=== PATIENT | female | born 1955 | race Caucasian/White ===

== ENCOUNTER 2016-11-24 20:11 | Inpatient (IN) | payer OTHER ==
[~2016-11-24] VITALS: Ht 170.2 cm; Wt 87.5 kg
[~2016-11-24 20:11] MED LIST: AMLO5TAB4 PO; CAPT25TA3 PO; CARI350T PO; DOCU-150 PO; FURO-151 PO; GABA600T PO; OMEP20TA80 PO; OXYC-23 PO; SERT100T PO; SIMV40TA2 PO
[2016-11-24] MEDS ORDERED: KETOROLAC 30MG/ML VIAL IV STA (20:29)
[2016-11-24] MEDS ORDERED: SODIUM CHLORIDE 0.9% 1,000 ML IV ONE (20:29)
[2016-11-24] MEDS ORDERED: PANTOPRAZOLE SODIUM 40 MG/VIAL IV STA (20:29)
[2016-11-24] MEDS ORDERED: ASPIRIN 325MG TABLET PO ONE (20:45)
[2016-11-24 20:51] LABS: EOSINOPHILS % 2.5 % (0.0-5.0); HEMATOCRIT. 36.2 % (36.0-48.0); HEMOGLOBIN. 12.1 g/dL (12.0-16.0); LYMPHOCYTES % 39.1 % (20.0-50.0); MEAN CORPUSCULAR HEMOGLOBIN 28.2 pg (28.0-32.0); MEAN CORPUSCULAR HGB CONC 33.4 g/dL (31.0-37.0); MEAN CORPUSCULAR VOLUME 84.4 fL (81.0-99.0); MEAN PLATELET VOLUME 10.5 fl (7.4-10.4); MONOCYTES % 6.4 % (2.0-8.0); PLATELET 243 x1000/uL (130-400); RED BLOOD CELL COUNT 4.29 mill/uL (4.2-5.4); RED CELL DISTRIBUTION WIDTH 15.4 % (11.6-14.6); WHITE BLOOD COUNT 9.9 x1000/uL (4.5-11.0)
[2016-11-24 20:54] LABS: CHLORIDE 102 mEq/L (98-107)
[2016-11-24 20:56] LABS: PROTHROMBIN TIME 10.6 sec
[2016-11-24 21:02] LABS: ALANINE AMINOTRANSFERASE 34 IU/L (13-61); ALBUMIN 3.5 g/dL (3.4-5.0); ANION GAP 13; CALCIUM 8.6 mg/dL (8.5-10.1); CARBON DIOXIDE 28 mEq/L (21-32); ETHANOL BLOOD < 10 mg/dL; INDEX HEMOLYSI 1 (1-3); INDEX ICTERIC 1 (1-4); INDEX LIPEMIC 1 (1-3); LIPASE 111 IU/L (73-393); UREA NITROGEN BLOOD 10 mg/dL (7-21); eGFR > 60 mL/min (>60)
[2016-11-24 21:05] LABS: NT PRO B-TYPE NATRIURETIC PEP 285 pg/mL (5-125); TROPONIN I < 0.02 ng/mL (0.00-0.04)
[2016-11-24 21:40] LABS: CLARITY URINE CLEAR (CLEAR); COLOR URINE YELLOW (YELLOW); GLUCOSE URINE 3+ (NEGATIVE); KETONES URINE NEGATIVE (NEGATIVE); LEUKOCYTE ESTERASE URINE NEGATIVE (NEGATIVE); NITRITE URINE NEGATIVE (NEGATIVE); OCCULT BLOOD URINE NEGATIVE (NEGATIVE); PH URINE 7.5 (4.5-8.0); PROTEIN URINE NEGATIVE (NEGATIVE); SPECIFIC GRAVITY URINE 1.012 (1.005-1.030); UROBILINOGEN URINE 0.2 E.U./dL (0.2-1.0)
[2016-11-24 21:50] LABS: *AMPHETAMINES SCREEN URINE NEGATIVE (NEGATIVE); *BARBITURATES SCREEN URINE NEGATIVE (NEGATIVE); *BENZODIAZEPINES SCREEN URINE NEGATIVE (NEGATIVE); *COCAINE SCREEN URINE NEGATIVE (NEGATIVE); CANNABINOID URINE SCREEN PRESUMTIVE POSITIVE (NEGATIVE); ECSTASY MDMA SCREEN URINE NEGATIVE (NEGATIVE); METHADONE URINE SCREEN NEGATIVE (NEGATIVE); OPIATES URINE SCREEN PRESUMTIVE POSITIVE (NEGATIVE); PHENCYCLIDINE URINE SCREEN NEGATIVE (NEGATIVE)
[2016-11-24 22:33] LABS: RBC URINE 0-2 /hpf (0-2); WBC URINE 0-2 /hpf (0-2)
[2016-11-24 22:36] LABS: BACTERIA URINE TRACE; SQUAMOUS EPITHELIAL CELL URINE FEW /lpf (RARE/1+)
[2016-11-24] MEDS ORDERED: NITROGLYCERIN OINT 1GM/INCH UDPKT TD NR (23:15)
[2016-11-24] MEDS ORDERED: IBUPROFEN 400MG TABLET PO NR (23:15)
[2016-11-24] MEDS ORDERED: ASPIRIN 81MG TABLET PO NR (23:15)
[2016-11-24] MEDS ORDERED: HYDRALAZINE 20MG/ML VIAL IV NR (23:15)
[2016-11-24] MEDS ORDERED: POTASSIUM BICARB/CIT ACID 25 MEQ TABLET.EFF PO NR (23:15)
[2016-11-25] MEDS ORDERED: MAGNESIUM/ALUMINUM HYDROXIDE/SIMETHICONE 30ML UDC PO PRN (00:30)
[2016-11-25] MEDS ORDERED: DIPHENHYDRAMINE 50MG/ML VIAL IV PRN (00:30)
[2016-11-25] MEDS ORDERED: GUAIFENESIN 200MG/10ML SUGAR FREE UDC PO PRN (00:30)
[2016-11-25] MEDS ORDERED: IPRATROPIUM/ALBUTEROL 0.5-3(2.5)MG/3ML NEB INH PRN (00:30)
[2016-11-25] MEDS ORDERED: CLONIDINE 0.1MG TABLET PO PRN (00:30)
[2016-11-25] MEDS: OXYCODONE HCL/ACETAMINOPHEN 5/325MG TABLET PO PRN ×3 (00:46→20:18)
[2016-11-25] MEDS: CARISOPRODOL 350 MG TABLET PO PRN ×4 (01:40→22:40)
[2016-11-25 02:30] VITALS: BP 156/83
[2016-11-25] MEDS: SERTRALINE HCL 100MG TABLET PO SCH ×2 (04:32→21:22)
[2016-11-25] MEDS: ACETAMINOPHEN 325MG TABLET PO PRN ×3 (04:32→22:40)
[2016-11-25] MEDS: ONDANSETRON HCL 4MG/2ML VIAL IV PRN ×2 (04:41→20:15)
[2016-11-25] MEDS: SODIUM CHLORIDE 0.9% INJ 3ML FLUSH IVF SCH ×3 (06:00→22:43)
[2016-11-25] MEDS: CAPTOPRIL 25MG TABLET PO SCH ×3 (07:26→21:21)
[2016-11-25] MEDS: GABAPENTIN 300MG CAPSULE PO SCH ×3 (07:26→21:22)
[2016-11-25 08:00] VITALS: BP 139/79
[2016-11-25] MEDS: DOCUSATE SODIUM 100MG CAPSULE PO SCH (08:48)
[2016-11-25] MEDS: AMLODIPINE 10MG TABLET PO SCH (08:48)
[2016-11-25] MEDS ORDERED: MORPHINE SULFATE 4 MG/ML CPJ (NOT FOR IM USE) IV SCH (10:38)
[2016-11-25] MEDS ORDERED: OXYCODONE HCL/ACETAMINOPHEN 5/325MG TABLET PO PRN (11:30)
[2016-11-25 12:00] VITALS: BP 130/79
[2016-11-25 16:00] VITALS: BP 125/72
[2016-11-25] MEDS ORDERED: BISACODYL 5MG TABLET PO NR ×2 (16:00→20:00)
[2016-11-25] MEDS ORDERED: SORBITOL 70% SOLN 30ML PO NR ×2 (16:00→20:00)
[2016-11-25 20:00] VITALS: BP 148/83
[2016-11-26] VITALS: BP 157/80
[2016-11-26] MEDS: ONDANSETRON HCL 4MG/2ML VIAL IV PRN ×2 (00:30→07:07)
[2016-11-26] MEDS: OXYCODONE HCL/ACETAMINOPHEN 5/325MG TABLET PO PRN (02:03)
[2016-11-26 04:00] VITALS: BP 150/82
[2016-11-26 05:39] LABS: INR 1.1; PARTIAL THROMBOPLASTIN TIME 23.8 sec (24.0-34.0); PROTHROMBIN TIME 10.9 sec
[2016-11-26] MEDS ORDERED: SORBITOL 70% SOLN 30ML PO NR (06:00)
[2016-11-26] MEDS: CAPTOPRIL 25MG TABLET PO SCH (07:06)
[2016-11-26] MEDS: SODIUM CHLORIDE 0.9% INJ 3ML FLUSH IVF SCH (07:06)
[2016-11-26] MEDS: GABAPENTIN 300MG CAPSULE PO SCH (07:06)
[2016-11-26] MEDS: CARISOPRODOL 350 MG TABLET PO PRN (08:34)
[2016-11-26] MEDS: AMLODIPINE 10MG TABLET PO SCH (08:34)
[2016-11-26] MEDS: DOCUSATE SODIUM 100MG CAPSULE PO SCH (08:43)
== END 2016-11-26 10:17 | disposition left against medical advice (07) | DRG 861 ==
LOC: ER 20:23 → 6EST 23:17
PROVIDERS: ADMIT Internal Medicine; ATTEND Internal Medicine
DX: G89.3 Neoplasm related pain (acute) (chronic) (principal); C78.7 Secondary malignant neoplasm of liver and intrahepatic bile duct; C34.90 Malignant neoplasm of unspecified part of unspecified bronchus or lung; R63.0 Anorexia; I10 Essential (primary) hypertension; E87.6 Hypokalemia; G89.4 Chronic pain syndrome; F41.9 Anxiety disorder, unspecified; I20.9 Angina pectoris, unspecified; F17.200 Nicotine dependence, unspecified, uncomplicated; Z60.2 Problems related to living alone; Z90.710 Acquired absence of both cervix and uterus; Z90.49 Acquired absence of other specified parts of digestive tract; Z68.30 Body mass index [BMI] 30.0-30.9, adult; Z80.1 Family history of malignant neoplasm of trachea, bronchus and lung; Z82.49 Family history of ischemic heart disease and other diseases of the circulatory system; Z88.6 Allergy status to analgesic agent; Z88.8 Allergy status to other drugs, medicaments and biological substances
CPT/HCPCS: 36415; 71010; 74176; 76705; 80053; 80305; 81001; 82105; 82378; 83690; 83880; 84484; 85025; 85610; 85730; 93005; 96361; 96374; 99285; C1893; C9113; G0482; J0360; J1200; J1885; J2270; J2405; J7030

== ENCOUNTER 2017-07-12 13:31 | Inpatient (IN) | payer OTHER ==
[~2017-07-12] VITALS: Ht 170.2 cm; Wt 79.4 kg
[~2017-07-12 13:31] MED LIST changes: +OMEP20TA2 PO; -OMEP20TA80 PO
[2017-07-12] MEDS ORDERED: SODIUM CHLORIDE 0.9% 1,000 ML IV NR (14:13)
[2017-07-12] MEDS ORDERED: MORPHINE SULFATE 10 MG/ML CPJ IV STA ×2 (14:13→17:06)
[2017-07-12] MEDS ORDERED: ONDANSETRON HCL 4MG/2ML VIAL IV NR (14:13)
[2017-07-12 14:33] LABS: BASOPHILS % 0.5 % (0.0-2.0); EOSINOPHILS % 0.4 % (0.0-5.0); HEMATOCRIT. 30.5 % (36.0-48.0); HEMOGLOBIN. 9.7 g/dL (12.0-16.0); LYMPHOCYTES % 21.4 % (20.0-50.0); MEAN CORPUSCULAR HEMOGLOBIN 25.1 pg (28.0-32.0); MEAN CORPUSCULAR VOLUME 79.1 fL (81.0-99.0); NEUTROPHILS % 76.7 % (40.0-76.0); PLATELET 391 x1000/uL (130-400); RED BLOOD CELL COUNT 3.86 mill/uL (4.2-5.4); RED CELL DISTRIBUTION WIDTH 18.5 % (11.6-14.6)
[2017-07-12 14:53] LABS: CARBON DIOXIDE 29 mEq/L (21-32); CHLORIDE 101 mEq/L (98-107)
[2017-07-12] MEDS ORDERED: MORPHINE SULFATE 2 MG/ML CPJ (NOT FOR IM USE) IV ONE (14:54)
[2017-07-12] MEDS ORDERED: DEXT 5%/0.45% NACL 1000ML 1,000 ML IV SCH (18:22)
[2017-07-12] MEDS ORDERED: ACETAMINOPHEN 650MG/20.3ML UDC GT PRN (18:30)
[2017-07-12] MEDS ORDERED: LORAZEPAM 0.5MG TABLET PO PRN (18:30)
[2017-07-12] MEDS ORDERED: CLONIDINE 0.1MG TABLET PO PRN (18:30)
[2017-07-12] MEDS ORDERED: DOCUSATE SODIUM 100MG CAPSULE PO PRN (18:30)
[2017-07-12] MEDS ORDERED: HYDROCODONE/ACETAMINOPHEN 5/325MG TABLET PO PRN (18:30)
[2017-07-12] MEDS ORDERED: IPRATROPIUM/ALBUTEROL 0.5-3(2.5)MG/3ML NEB INH PRN (18:30)
[2017-07-12] MEDS ORDERED: ACETAMINOPHEN 650MG SUPP PR PRN (18:30)
[2017-07-12] MEDS ORDERED: NA PHOS,M-B/NA PHOS,DI-BA ENEMA 118ML PR PRN (18:30)
[2017-07-12] MEDS ORDERED: DIPHENHYDRAMINE 50MG/ML VIAL IV PRN (18:30)
[2017-07-12] MEDS ORDERED: GUAIFENESIN 200MG/10ML SUGAR FREE UDC PO PRN (18:30)
[2017-07-12] MEDS ORDERED: MAGNESIUM/ALUMINUM HYDROXIDE/SIMETHICONE 30ML UDC PO PRN (18:30)
[2017-07-12] MEDS ORDERED: ACETAMINOPHEN 325MG TABLET PO PRN (18:30)
[2017-07-12 18:42] VITALS: BP 146/72
[2017-07-12] MEDS ORDERED: ONDA4TAB5 PO (18:51)
[2017-07-12 18:56] VITALS: BP 142/78
[2017-07-12 19:45] LABS: INR 1.1; PARTIAL THROMBOPLASTIN TIME 25.2 sec (23.4-31.0)
[2017-07-12 20:00] VITALS: BP_SYST 134; BP_SYST 136; BP_DIAS 58; BP_DIAS 60
[2017-07-12] MEDS ORDERED: ENOXAPARIN 40MG/0.4ML SYR SUBCUT SCH (21:00)
[2017-07-12] MEDS: MORPHINE SULFATE 2 MG/ML CPJ (NOT FOR IM USE) IV PRN (21:06)
[2017-07-12] MEDS: SERTRALINE HCL 100MG TABLET PO SCH (21:30)
[2017-07-12] MEDS ORDERED: CARISOPRODOL 350 MG TABLET PO SCH (21:30)
[2017-07-12] MEDS ORDERED: CAPTOPRIL 25MG TABLET PO SCH (21:30)
[2017-07-12] MEDS: AMLODIPINE 10MG TABLET PO SCH (21:30)
[2017-07-12] MEDS: GABAPENTIN 300MG CAPSULE PO SCH (21:54)
[2017-07-12] MEDS: DOCUSATE SODIUM 100MG CAPSULE PO SCH (21:54)
[2017-07-12] MEDS: SODIUM CHLORIDE 0.9% INJ 3ML FLUSH IVF SCH (21:55)
[2017-07-12] MEDS: HYDROCODONE/ACETAMINOPHEN 10/325MG TABLET PO PRN (22:35)
[2017-07-12] MEDS: ONDANSETRON HCL 4MG/2ML VIAL IV PRN (22:51)
[2017-07-13] VITALS: BP 145/65
[2017-07-13] MEDS: MORPHINE SULFATE 2 MG/ML CPJ (NOT FOR IM USE) IV PRN ×2 (03:49→10:25)
[2017-07-13 03:57] VITALS: BP 130/76
[2017-07-13] MEDS: SODIUM CHLORIDE 0.9% INJ 3ML FLUSH IVF SCH (05:53)
[2017-07-13] MEDS: HYDROCODONE/ACETAMINOPHEN 10/325MG TABLET PO PRN (06:10)
[2017-07-13 07:00] LABS: BASOPHILS % 0.8 % (0.0-2.0); EOSINOPHILS % 2.5 % (0.0-5.0); HEMATOCRIT. 27.2 % (36.0-48.0); HEMOGLOBIN. 8.9 g/dL (12.0-16.0); LYMPHOCYTES % 21.8 % (20.0-50.0); MEAN CORPUSCULAR HEMOGLOBIN 25.7 pg (28.0-32.0); MEAN CORPUSCULAR VOLUME 78.8 fL (81.0-99.0); MEAN PLATELET VOLUME 10.5 fl (7.4-10.4); MONOCYTES % 1.7 % (2.0-8.0); NEUTROPHILS % 73.2 % (40.0-76.0); PLATELET 355 x1000/uL (130-400); RED BLOOD CELL COUNT 3.45 mill/uL (4.2-5.4); RED CELL DISTRIBUTION WIDTH 18.5 % (11.6-14.6)
[2017-07-13 07:36] LABS: CARBON DIOXIDE 29 mEq/L (21-32); CHLORIDE 101 mEq/L (98-107); HDL CHOLESTEROL 38 mg/dL (40-59); LDL CHOLESTEROL 76 mg/dL (5-100)
[2017-07-13 08:00] VITALS: BP_SYST 154; BP_SYST 165; BP_DIAS 69; BP_DIAS 70
[2017-07-13] MEDS: ONDANSETRON HCL 4MG/2ML VIAL IV PRN (08:21)
[2017-07-13] MEDS: GABAPENTIN 300MG CAPSULE PO SCH ×2 (08:22→11:52)
[2017-07-13] MEDS: AMLODIPINE 10MG TABLET PO SCH (08:22)
[2017-07-13] MEDS: DOCUSATE SODIUM 100MG CAPSULE PO SCH (08:22)
[2017-07-13] MEDS: SERTRALINE HCL 100MG TABLET PO SCH (08:23)
[2017-07-13 08:42] LABS: *AMPHETAMINES SCREEN URINE NEGATIVE (NEGATIVE); *BARBITURATES SCREEN URINE NEGATIVE (NEGATIVE); *BENZODIAZEPINES SCREEN URINE NEGATIVE (NEGATIVE); *COCAINE SCREEN URINE NEGATIVE (NEGATIVE); CANNABINOID URINE SCREEN PRESUMTIVE POSITIVE (NEGATIVE); METHADONE URINE SCREEN NEGATIVE (NEGATIVE); OPIATES URINE SCREEN PRESUMTIVE POSITIVE (NEGATIVE); PHENCYCLIDINE URINE SCREEN NEGATIVE (NEGATIVE)
[2017-07-13] MEDS ORDERED: CAPTOPRIL 12.5MG TABLET PO SCH (09:00)
[2017-07-13] MEDS ORDERED: POTASSIUM CHLORIDE 20MEQ TABLET SR PO NR (11:30)
[2017-07-13 12:04] VITALS: BP 138/74
== END 2017-07-13 14:15 | disposition home or self-care (01) | DRG 861 ==
LOC: ER 13:31 → 8WST 17:21 → ENRESERV 17:33
PROVIDERS: ADMIT Family Medicine; ATTEND Family Medicine
DX: G89.3 Neoplasm related pain (acute) (chronic) (principal); E43 Unspecified severe protein-calorie malnutrition; C25.9 Malignant neoplasm of pancreas, unspecified; C78.00 Secondary malignant neoplasm of unspecified lung; C78.7 Secondary malignant neoplasm of liver and intrahepatic bile duct; E86.0 Dehydration; I10 Essential (primary) hypertension; D64.9 Anemia, unspecified; E11.9 Type 2 diabetes mellitus without complications; E78.5 Hyperlipidemia, unspecified; K63.9 Disease of intestine, unspecified; R59.9 Enlarged lymph nodes, unspecified; M54.40 Lumbago with sciatica, unspecified side; Z90.710 Acquired absence of both cervix and uterus; Z79.899 Other long term (current) drug therapy; Z88.6 Allergy status to analgesic agent; Z88.8 Allergy status to other drugs, medicaments and biological substances; Z68.27 Body mass index [BMI] 27.0-27.9, adult
CPT/HCPCS: 36415; 74176; 80053; 80061; 80305; 83690; 85025; 85610; 85730; 96374; 96375; 96376; 99285; J1650; J2270; J2405; J7030

== ENCOUNTER 2017-08-17 22:47 | Emergency (ER) | payer MEDICAID, OTHER ==
[~2017-08-17] VITALS: Ht 172.7 cm; Wt 98.0 kg
[~2017-08-17 22:47] MED LIST changes: +ONDA4TAB5 PO
[2017-08-18] MEDS ORDERED: MORPHINE SULFATE 4 MG/ML CPJ (NOT FOR IM USE) IV STA (00:35)
[2017-08-18] MEDS ORDERED: SODIUM CHLORIDE 0.9% 1,000 ML IV ONE (00:35)
[2017-08-18] MEDS ORDERED: ONDANSETRON HCL 4MG/2ML VIAL IV STA (00:35)
[2017-08-18 01:00] LABS: BASOPHILS % 0.4 % (0.0-2.0); EOSINOPHILS % 1.7 % (0.0-5.0); HEMATOCRIT. 30.6 % (36.0-48.0); HEMOGLOBIN. 9.6 g/dL (12.0-16.0); LYMPHOCYTES % 29.4 % (20.0-50.0); MEAN CORPUSCULAR VOLUME 82.7 fL (81.0-99.0); MEAN PLATELET VOLUME 9.3 fl (7.4-10.4); MONOCYTES % 11.1 % (2.0-8.0); NEUTROPHILS % 57.4 % (40.0-76.0); PLATELET 304 x1000/uL (130-400); RED CELL DISTRIBUTION WIDTH 22.1 % (11.6-14.6)
[2017-08-18 01:05] LABS: PROTHROMBIN TIME 10.7 sec (9.4-11.6)
[2017-08-18 01:14] LABS: CARBON DIOXIDE 27 mEq/L (21-32); CHLORIDE 101 mEq/L (98-107); TROPONIN I < 0.02 ng/mL (0.00-0.04)
[2017-08-18] MEDS ORDERED: SODIUM CHLORIDE 0.9% 1,000 ML IV SCH (02:00)
[2017-08-18] MEDS ORDERED: IOHEXOL-350 100 ML BOTTLE ONE (03:55)
[2017-08-18] MEDS ORDERED: MORPHINE SULFATE 4 MG/ML CPJ (NOT FOR IM USE) IV ONE (04:00)
[2017-08-18 07:44] VITALS: BP 166/78
[2017-08-18] MEDS ORDERED: CLONIDINE 0.1MG TABLET PO PRN (13:00)
[2017-08-18] MEDS ORDERED: ACETAMINOPHEN 325MG TABLET PO PRN (13:00)
[2017-08-18] MEDS ORDERED: MAGNESIUM/ALUMINUM HYDROXIDE/SIMETHICONE 30ML UDC PO PRN (13:00)
[2017-08-18] MEDS ORDERED: ONDANSETRON HCL 4MG/2ML VIAL IV PRN (13:00)
[2017-08-18] MEDS ORDERED: IPRATROPIUM/ALBUTEROL 0.5-3(2.5)MG/3ML NEB HHN SCH (13:00)
[2017-08-18] MEDS ORDERED: DIPHENHYDRAMINE 50MG/ML VIAL IV PRN (13:00)
[2017-08-18] MEDS ORDERED: SODIUM CHLORIDE 0.9% INJ 3ML FLUSH IVF SCH (14:00)
== END 2017-08-18 13:21 | disposition left against medical advice (07) ==
LOC: ER 22:52 → EDBEDREQ 08-18 02:04 → CANBEDREQ 08-18 12:54 → ER 08-18 13:21
DX: R07.89 Other chest pain (principal); C25.9 Malignant neoplasm of pancreas, unspecified; C78.7 Secondary malignant neoplasm of liver and intrahepatic bile duct; D63.0 Anemia in neoplastic disease; K63.89 Other specified diseases of intestine; I10 Essential (primary) hypertension; J44.9 Chronic obstructive pulmonary disease, unspecified; Z92.21 Personal history of antineoplastic chemotherapy; I25.2 Old myocardial infarction; Z87.891 Personal history of nicotine dependence; Z90.710 Acquired absence of both cervix and uterus
CPT/HCPCS: 36415; 71045; 71275; 80053; 83690; 84484; 85025; 85610; 93005; 96361; 96374; 96375; 96376; 99285; C1893; J2270; J2405; J7030; Q9967; Z7610

== ENCOUNTER 2018-05-10 17:59 | Inpatient (IN) | payer MEDICAID ==
[~2018-05-10] VITALS: Ht 165.1 cm; Wt 78.5 kg
[~2018-05-10 17:59] MED LIST changes: -AMLO5TAB4 PO; +AMLO5TAB88 PO; +ATOR10TA PO; +CAP25 PO; +CAPE500T15 MT; -CAPT25TA3 PO; -CARI350T PO; -DOCU-150 PO; -FURO-151 PO; +GABA-531 PO; -GABA600T PO; +MY80 PO; -OMEP20TA2 PO; +PHEN-909 PO; +POTA20TA82 PO; -SIMV40TA2 PO
[2018-05-10] MEDS ORDERED: MORPHINE SULFATE 4 MG/ML CPJ (NOT FOR IM USE) IV STA (18:21)
[2018-05-10] MEDS ORDERED: ONDANSETRON HCL 4MG/2ML INJ IV STA (18:21)
[2018-05-10] MEDS ORDERED: NITROGLYCERIN OINT 1GM/INCH UDPKT TD ONE (18:30)
[2018-05-10 19:24] LABS: BASOPHILS % 0.8 % (0.0-2.0); EOSINOPHILS % 0.3 % (0.0-5.0); HEMATOCRIT. 29.6 % (36.0-48.0); HEMOGLOBIN. 9.6 g/dL (12.0-16.0); LYMPHOCYTES % 16.3 % (20.0-50.0); MEAN CORPUSCULAR HEMOGLOBIN 27.6 pg (28.0-32.0); MEAN CORPUSCULAR VOLUME 85.2 fL (81.0-99.0); MEAN PLATELET VOLUME 9.7 fl (7.4-10.4); MONOCYTES % 6.9 % (2.0-8.0); NEUTROPHILS % 75.7 % (40.0-76.0); PLATELET 311 x1000/uL (130-400); RED BLOOD CELL COUNT 3.48 mill/uL (4.2-5.4)
[2018-05-10 19:32] LABS: CHLORIDE 96 mEq/L (98-107); INR 1.2; PARTIAL THROMBOPLASTIN TIME 26.1 sec (23.4-31.0); PROTHROMBIN TIME 11.7 sec (9.1-11.1)
[2018-05-10] MEDS ORDERED: POTASSIUM CHLORIDE 20MEQ TABLET SR PO ONE (20:00)
[2018-05-10 23:51] VITALS: BP 153/86
[2018-05-11] VITALS: BP 153/74
[2018-05-11] MEDS: MORPHINE SULFATE 4 MG/ML CPJ (NOT FOR IM USE) IV PRN ×5 (01:52→21:39)
[2018-05-11 04:00] VITALS: BP 145/76
[2018-05-11 07:54] LABS: BASOPHILS % 0.4 % (0.0-2.0); EOSINOPHILS % 0.5 % (0.0-5.0); HEMATOCRIT. 29.8 % (36.0-48.0); HEMOGLOBIN. 9.6 g/dL (12.0-16.0); LYMPHOCYTES % 18.8 % (20.0-50.0); MEAN CORPUSCULAR HEMOGLOBIN 27.5 pg (28.0-32.0); MEAN CORPUSCULAR VOLUME 85.1 fL (81.0-99.0); MEAN PLATELET VOLUME 9.6 fl (7.4-10.4); MONOCYTES % 7.1 % (2.0-8.0); NEUTROPHILS % 73.2 % (40.0-76.0); PLATELET 300 x1000/uL (130-400); RED BLOOD CELL COUNT 3.51 mill/uL (4.2-5.4); RED CELL DISTRIBUTION WIDTH 20.3 % (11.6-14.6)
[2018-05-11 08:00] VITALS: BP 146/82
[2018-05-11 08:10] LABS: CHLORIDE 97 mEq/L (98-107)
[2018-05-11] MEDS ORDERED: AMLODIPINE 5MG TABLET PO SCH (09:00)
[2018-05-11] MEDS ORDERED: MEDICATION NOT ON FORMULARY EA (Gabapentin 600 MG) PO SCH (09:00)
[2018-05-11] MEDS ORDERED: MEDICATION NOT ON FORMULARY EA (Amlodipine Besylate 5 MG) PO SCH (09:00)
[2018-05-11] MEDS: METOPROLOL TARTRATE 50MG TABLET PO SCH ×2 (09:10→20:30)
[2018-05-11] MEDS: GABAPENTIN 300MG CAPSULE PO SCH ×3 (09:10→16:52)
[2018-05-11] MEDS: SERTRALINE HCL 100MG TABLET PO SCH (09:10)
[2018-05-11] MEDS: ONDANSETRON HCL 4MG/2ML INJ IV PRN ×3 (09:46→21:46)
[2018-05-11 12:00] VITALS: BP 156/87
[2018-05-11 16:00] VITALS: BP 114/64
[2018-05-11] MEDS: AMLODIPINE 5MG TABLET PO SCH (16:52)
[2018-05-11] MEDS ORDERED: DEXTROSE 50% WATER 50ML SYRINGE IV PRN (19:15)
[2018-05-11 19:20] LABS: CLARITY URINE CLEAR (CLEAR); COLOR URINE DARK YELLOW (YELLOW); KETONES URINE NEGATIVE (NEGATIVE); LEUKOCYTE ESTERASE URINE NEGATIVE (NEGATIVE); NITRITE URINE NEGATIVE (NEGATIVE); OCCULT BLOOD URINE NEGATIVE (NEGATIVE); PH URINE 6.5 (4.5-8.0); PROTEIN URINE TRACE (NEGATIVE); SPECIFIC GRAVITY URINE 1.017 (1.005-1.030)
[2018-05-11 20:00] VITALS: BP 140/77
[2018-05-11] MEDS: BLOOD SUGAR DIAGNOSTIC STRIP TEST SCH (20:30)
[2018-05-11] MEDS: INSULIN LISPRO 100 UNITS/ML SUBCUT SCH (20:33)
[2018-05-11] MEDS ORDERED: ATORVASTATIN CALCIUM 10MG TABLET PO SCH (21:00)
[2018-05-12] VITALS: BP 130/64
[2018-05-12 04:00] VITALS: BP 147/80
[2018-05-12] MEDS: ONDANSETRON HCL 4MG/2ML INJ IV PRN ×4 (04:29→22:28)
[2018-05-12] MEDS: MORPHINE SULFATE 4 MG/ML CPJ (NOT FOR IM USE) IV PRN ×5 (04:30→22:28)
[2018-05-12] MEDS: BLOOD SUGAR DIAGNOSTIC STRIP TEST SCH ×4 (05:19→20:22)
[2018-05-12 07:28] LABS: BASOPHILS % 0.5 % (0.0-2.0); EOSINOPHILS % 0.8 % (0.0-5.0); HEMATOCRIT. 30.2 % (36.0-48.0); HEMOGLOBIN. 9.9 g/dL (12.0-16.0); LYMPHOCYTES % 19.2 % (20.0-50.0); MEAN CORPUSCULAR HEMOGLOBIN 28.1 pg (28.0-32.0); MEAN CORPUSCULAR VOLUME 86.1 fL (81.0-99.0); MEAN PLATELET VOLUME 9.6 fl (7.4-10.4); NEUTROPHILS % 72.5 % (40.0-76.0); PLATELET 272 x1000/uL (130-400); RED BLOOD CELL COUNT 3.51 mill/uL (4.2-5.4); RED CELL DISTRIBUTION WIDTH 20.6 % (11.6-14.6)
[2018-05-12 07:50] LABS: CHLORIDE 93 mEq/L (98-107)
[2018-05-12 08:00] VITALS: BP 123/75
[2018-05-12] MEDS: INSULIN LISPRO 100 UNITS/ML SUBCUT SCH ×4 (08:10→20:28)
[2018-05-12] MEDS: SERTRALINE HCL 100MG TABLET PO SCH (08:38)
[2018-05-12] MEDS: AMLODIPINE 5MG TABLET PO SCH ×2 (08:38→16:23)
[2018-05-12] MEDS: GABAPENTIN 300MG CAPSULE PO SCH ×3 (08:38→16:23)
[2018-05-12] MEDS: METOPROLOL TARTRATE 50MG TABLET PO SCH ×2 (08:38→20:21)
[2018-05-12] MEDS ORDERED: ENOXAPARIN 40MG/0.4ML SYR SUBCUT SCH (11:00)
[2018-05-12 11:44] LABS: T4 FREE 1.04 ng/dL (0.76-1.46)
[2018-05-12 12:00] VITALS: BP 129/73
[2018-05-12] MEDS ORDERED: POTASSIUM CHLORIDE 20MEQ TABLET SR PO NR (13:45)
[2018-05-12] MEDS ORDERED: IOHEXOL-350 100 ML BOTTLE ONE (14:33)
[2018-05-12] MEDS ORDERED: ENOXAPARIN 30MG/0.3ML SYR SUBCUT NR (14:45)
[2018-05-12] MEDS ORDERED: LEVOFLOXACIN 500MG PREMIX 100 ML IV SCH (15:00)
[2018-05-12 16:00] VITALS: BP 113/69
[2018-05-12 16:52] LABS: CREATINE KINASE 83 IU/L (26-192)
[2018-05-12 16:55] LABS: CREATINE KINASE MB FRACTION < 1.0 ng/mL (0.5-3.6)
[2018-05-12 20:00] VITALS: BP 100/54
[2018-05-12] MEDS: OXYCODONE HCL/ACETAMINOPHEN 5/325MG TABLET PO PRN (20:21)
[2018-05-12] MEDS: ENOXAPARIN 80MG/0.8ML SYR SUBCUT SCH (20:22)
[2018-05-12 23:37] LABS: CREATINE KINASE 80 IU/L (26-192)
[2018-05-12 23:38] LABS: CREATINE KINASE MB FRACTION < 1.0 ng/mL (0.5-3.6)
[2018-05-13 00:55] VITALS: BP 102/60
[2018-05-13 04:00] VITALS: BP 129/56
[2018-05-13] MEDS: ONDANSETRON HCL 4MG/2ML INJ IV PRN ×5 (04:52→23:58)
[2018-05-13] MEDS: MORPHINE SULFATE 4 MG/ML CPJ (NOT FOR IM USE) IV PRN ×5 (04:52→23:58)
[2018-05-13] MEDS: ACETAMINOPHEN 325MG TABLET PO PRN ×2 (04:56→19:45)
[2018-05-13] MEDS: BLOOD SUGAR DIAGNOSTIC STRIP TEST SCH ×4 (05:53→21:02)
[2018-05-13 06:14] LABS: BASOPHILS % 0.5 % (0.0-2.0); EOSINOPHILS % 0.5 % (0.0-5.0); HEMATOCRIT. 31.5 % (36.0-48.0); HEMOGLOBIN. 10.4 g/dL (12.0-16.0); LYMPHOCYTES % 24.1 % (20.0-50.0); MEAN CORPUSCULAR HEMOGLOBIN 28.1 pg (28.0-32.0); MEAN CORPUSCULAR VOLUME 85.6 fL (81.0-99.0); MEAN PLATELET VOLUME 10.1 fl (7.4-10.4); MONOCYTES % 6.3 % (2.0-8.0); NEUTROPHILS % 68.6 % (40.0-76.0); PLATELET 305 x1000/uL (130-400); RED BLOOD CELL COUNT 3.69 mill/uL (4.2-5.4); RED CELL DISTRIBUTION WIDTH 20.3 % (11.6-14.6)
[2018-05-13 06:35] LABS: CHLORIDE 92 mEq/L (98-107)
[2018-05-13 06:52] LABS: CREATINE KINASE 80 IU/L (26-192)
[2018-05-13 06:53] LABS: CREATINE KINASE MB FRACTION < 1.0 ng/mL (0.5-3.6)
[2018-05-13 08:00] VITALS: BP 111/51
[2018-05-13] MEDS: INSULIN LISPRO 100 UNITS/ML SUBCUT SCH ×4 (08:10→21:00)
[2018-05-13] MEDS: METOPROLOL TARTRATE 50MG TABLET PO SCH ×2 (09:09→19:41)
[2018-05-13] MEDS: AMLODIPINE 5MG TABLET PO SCH ×2 (09:10→17:00)
[2018-05-13] MEDS: ENOXAPARIN 80MG/0.8ML SYR SUBCUT SCH ×2 (09:11→21:07)
[2018-05-13] MEDS: SERTRALINE HCL 100MG TABLET PO SCH (10:07)
[2018-05-13] MEDS: GABAPENTIN 300MG CAPSULE PO SCH ×3 (10:07→17:00)
[2018-05-13 12:00] VITALS: BP 100/51
[2018-05-13 16:00] VITALS: BP 113/56
[2018-05-13 20:00] VITALS: BP 114/65
[2018-05-14] VITALS: BP 140/80
[2018-05-14 04:00] VITALS: BP 137/65
[2018-05-14] MEDS: ONDANSETRON HCL 4MG/2ML INJ IV PRN ×2 (05:01→11:18)
[2018-05-14] MEDS: MORPHINE SULFATE 4 MG/ML CPJ (NOT FOR IM USE) IV PRN ×2 (05:01→09:14)
[2018-05-14 05:19] VITALS: BP_SYST 120; BP_SYST 137; BP_DIAS 62; BP_DIAS 65
[2018-05-14] MEDS: BLOOD SUGAR DIAGNOSTIC STRIP TEST SCH ×2 (05:34→13:27)
[2018-05-14] MEDS: ACETAMINOPHEN 325MG TABLET PO PRN (06:25)
[2018-05-14 08:00] VITALS: BP 120/62
[2018-05-14] MEDS: INSULIN LISPRO 100 UNITS/ML SUBCUT SCH ×2 (09:12→13:32)
[2018-05-14] MEDS: METOPROLOL TARTRATE 50MG TABLET PO SCH (09:13)
[2018-05-14] MEDS: AMLODIPINE 5MG TABLET PO SCH (09:13)
[2018-05-14] MEDS: ENOXAPARIN 80MG/0.8ML SYR SUBCUT SCH (09:14)
[2018-05-14] MEDS: SERTRALINE HCL 100MG TABLET PO SCH (09:23)
[2018-05-14] MEDS: GABAPENTIN 300MG CAPSULE PO SCH ×2 (09:23→13:28)
[2018-05-14] MEDS: OXYCODONE HCL/ACETAMINOPHEN 5/325MG TABLET PO PRN (11:18)
[2018-05-14 12:00] VITALS: BP 120/63
[2018-05-26] MEDS ORDERED: XAR15 MT (20:09)
== END 2018-05-14 16:09 | disposition home or self-care (01) | DRG 197 ==
LOC: ER 17:59 → 7WST 19:53 → EDBEDREQ 20:00 → EDBEDREQTM 20:00 → ENRESERV 21:59
PROVIDERS: ADMIT Internal Medicine; ATTEND Internal Medicine
DX: I82.412 Acute embolism and thrombosis of left femoral vein (principal); I26.99 Other pulmonary embolism without acute cor pulmonale; E43 Unspecified severe protein-calorie malnutrition; C22.9 Malignant neoplasm of liver, not specified as primary or secondary; C25.9 Malignant neoplasm of pancreas, unspecified; E87.1 Hypo-osmolality and hyponatremia; I82.432 Acute embolism and thrombosis of left popliteal vein; D64.9 Anemia, unspecified; E87.8 Other disorders of electrolyte and fluid balance, not elsewhere classified; E11.9 Type 2 diabetes mellitus without complications; E78.5 Hyperlipidemia, unspecified; E87.6 Hypokalemia; I10 Essential (primary) hypertension; F32.9 Major depressive disorder, single episode, unspecified; K59.00 Constipation, unspecified; Z82.49 Family history of ischemic heart disease and other diseases of the circulatory system; Z92.21 Personal history of antineoplastic chemotherapy; Z68.28 Body mass index [BMI] 28.0-28.9, adult; Z88.6 Allergy status to analgesic agent; Z88.7 Allergy status to serum and vaccine; Z88.8 Allergy status to other drugs, medicaments and biological substances; Z79.899 Other long term (current) drug therapy
CPT/HCPCS: 36415; 71045; 71275; 76705; 80048; 80053; 80061; 81003; 82550; 82553; 82962; 83036; 83690; 83735; 83880; 84439; 84443; 84484; 85025; 85379; 85610; 85730; 87040; 93005; 93306; 93970; 96374; 96375; 97162; 99291; C1893; J1650; J1815; J1956; J2270; J2405; J7050; Q9967

== ENCOUNTER 2018-05-19 13:30 | Inpatient (IN) | payer MEDICAID ==
[~2018-05-19] VITALS: Ht 160 cm; Wt 76.8 kg
[~2018-05-19 13:30] MED LIST changes: -ATOR10TA PO; -MY80 PO; -PHEN-909 PO; -POTA20TA82 PO
[2018-05-19] MEDS ORDERED: ONDANSETRON HCL 4MG/2ML INJ IV STA (15:35)
[2018-05-19] MEDS ORDERED: SODIUM CHLORIDE 0.9% 1,000 ML IV ONE (15:35)
[2018-05-19] MEDS ORDERED: MORPHINE SULFATE 4 MG/ML CPJ (NOT FOR IM USE) IV STA (15:35)
[2018-05-19 16:42] LABS: BASOPHILS % 0.4 % (0.0-2.0); EOSINOPHILS % 0.2 % (0.0-5.0); HEMOGLOBIN. 9.9 g/dL (12.0-16.0); LYMPHOCYTES % 12.6 % (20.0-50.0); MEAN CORPUSCULAR HEMOGLOBIN 26.9 pg (28.0-32.0); MEAN CORPUSCULAR VOLUME 83.8 fL (81.0-99.0); MEAN PLATELET VOLUME 9.6 fl (7.4-10.4); MONOCYTES % 6.2 % (2.0-8.0); NEUTROPHILS % 80.6 % (40.0-76.0); PLATELET 348 x1000/uL (130-400); RED CELL DISTRIBUTION WIDTH 20.1 % (11.6-14.6)
[2018-05-19 16:46] LABS: CHLORIDE 93 mEq/L (98-107)
[2018-05-19 16:47] LABS: INR 1.2; PROTHROMBIN TIME 11.8 sec (9.1-11.1)
[2018-05-19 16:50] LABS: ETHANOL BLOOD < 10 mg/dL
[2018-05-19] MEDS ORDERED: MORPHINE SULFATE 4 MG/ML CPJ (NOT FOR IM USE) IV ONE (17:15)
[2018-05-19] MEDS ORDERED: ONDANSETRON HCL 4MG/2ML INJ IV ONE (17:15)
[2018-05-19 20:15] VITALS: BP 152/95
[2018-05-19 20:16] VITALS: BP 152/95
[2018-05-19] MEDS ORDERED: DIPHENHYDRAMINE 50MG/ML VIAL IV PRN (20:30)
[2018-05-19] MEDS ORDERED: CLONIDINE 0.1MG TABLET PO PRN (20:30)
[2018-05-19] MEDS ORDERED: LORAZEPAM 0.5MG TABLET PO PRN (20:30)
[2018-05-19] MEDS ORDERED: MAGNESIUM/ALUMINUM HYDROXIDE/SIMETHICONE 30ML UDC PO PRN (20:30)
[2018-05-19] MEDS ORDERED: DOCUSATE SODIUM 100MG CAPSULE PO PRN (20:30)
[2018-05-19] MEDS ORDERED: GUAIFENESIN 200MG/10ML SUGAR FREE UDC PO PRN (20:30)
[2018-05-19] MEDS ORDERED: TRAMADOL 50MG TABLET PO PRN (20:30)
[2018-05-19] MEDS ORDERED: ZOLPIDEM TARTRATE 5MG TABLET PO PRN (20:30)
[2018-05-19] MEDS ORDERED: IPRATROPIUM/ALBUTEROL 0.5-3(2.5)MG/3ML NEB INH PRN (20:30)
[2018-05-19] MEDS ORDERED: ACETAMINOPHEN 325MG TABLET PO PRN (20:30)
[2018-05-19] MEDS ORDERED: NA PHOS,M-B/NA PHOS,DI-BA ENEMA 118ML PR PRN (20:30)
[2018-05-19] MEDS ORDERED: POTASSIUM CHLORIDE 20MEQ/PACKET PO NR (21:12)
[2018-05-19 21:15] VITALS: BP 152/95
[2018-05-19] MEDS: SUCRALFATE 1 G/10 ML UDC PO SCH (22:20)
[2018-05-19] MEDS: METOPROLOL TARTRATE 25MG TABLET PO SCH (22:21)
[2018-05-19] MEDS: FAMOTIDINE 20MG TABLET PO SCH (22:21)
[2018-05-19] MEDS: ENOXAPARIN 80MG/0.8ML SYR SUBCUT SCH (22:21)
[2018-05-19] MEDS: MORPHINE SULFATE 4 MG/ML CPJ (NOT FOR IM USE) IV PRN (23:10)
[2018-05-20 00:17] VITALS: BP 127/70
[2018-05-20] MEDS: ONDANSETRON HCL 4MG/2ML INJ IV PRN ×3 (01:15→10:43)
[2018-05-20 03:55] VITALS: BP 152/80
[2018-05-20] MEDS: MORPHINE SULFATE 4 MG/ML CPJ (NOT FOR IM USE) IV PRN ×2 (05:03→11:09)
[2018-05-20] MEDS: SUCRALFATE 1 G/10 ML UDC PO SCH ×2 (06:13→13:45)
[2018-05-20 07:57] VITALS: BP 154/91
[2018-05-20] MEDS: FAMOTIDINE 20MG TABLET PO SCH (08:10)
[2018-05-20] MEDS: METOPROLOL TARTRATE 25MG TABLET PO SCH (08:11)
[2018-05-20] MEDS: ENOXAPARIN 80MG/0.8ML SYR SUBCUT SCH (09:58)
[2018-05-20 11:15] LABS: CHLORIDE 96 mEq/L (98-107)
[2018-05-20 11:22] LABS: LDL CHOLESTEROL 133 mg/dL (5-100)
[2018-05-20 11:23] LABS: HDL CHOLESTEROL 12 mg/dL (40-59)
[2018-05-20 13:31] VITALS: BP 144/74
[2018-05-26] MEDS ORDERED: XAR15 MT (20:09)
== END 2018-05-20 17:15 | disposition home or self-care (01) | DRG 861 ==
LOC: ER 13:30 → ENRESERV 16:29 → 6WST 18:48 → EDBEDREQ 18:51 → EDBEDREQTM 18:51
PROVIDERS: ADMIT Internal Medicine; ATTEND Internal Medicine
DX: G89.3 Neoplasm related pain (acute) (chronic) (principal); E43 Unspecified severe protein-calorie malnutrition; C78.89 Secondary malignant neoplasm of other digestive organs; C78.7 Secondary malignant neoplasm of liver and intrahepatic bile duct; E87.1 Hypo-osmolality and hyponatremia; E83.51 Hypocalcemia; E11.9 Type 2 diabetes mellitus without complications; D63.8 Anemia in other chronic diseases classified elsewhere; I10 Essential (primary) hypertension; R79.89 Other specified abnormal findings of blood chemistry; E87.6 Hypokalemia; G43.909 Migraine, unspecified, not intractable, without status migrainosus; Z86.711 Personal history of pulmonary embolism; Z92.21 Personal history of antineoplastic chemotherapy; Z82.49 Family history of ischemic heart disease and other diseases of the circulatory system; Z68.30 Body mass index [BMI] 30.0-30.9, adult; Z88.6 Allergy status to analgesic agent; Z88.7 Allergy status to serum and vaccine; Z88.8 Allergy status to other drugs, medicaments and biological substances; Z79.899 Other long term (current) drug therapy; Z86.718 Personal history of other venous thrombosis and embolism
CPT/HCPCS: 36415; 71045; 74176; 80061; 83036; 83880; 84484; 93005; 96361; 96374; 96375; 96376; 99285; G0482; J1200; J1650; J2270; J2405; J7030

== ENCOUNTER 2018-06-26 11:40 | Inpatient (IN) | payer MEDICAID ==
[~2018-06-26] VITALS: Ht 170.2 cm; Wt 90.7 kg
[~2018-06-26 11:40] MED LIST changes: +XAR15 MT
[2018-06-26] MEDS ORDERED: ONDANSETRON HCL 4MG/2ML INJ IV STA (12:35)
[2018-06-26] MEDS ORDERED: MORPHINE SULFATE 4 MG/ML CPJ (NOT FOR IM USE) IV ONE (13:15)
[2018-06-26 13:48] LABS: BASOPHILS % 0.7 % (0.0-2.0); EOSINOPHILS % 0.2 % (0.0-5.0); HEMATOCRIT. 24.4 % (36.0-48.0); HEMOGLOBIN. 8.2 g/dL (12.0-16.0); LYMPHOCYTES % 34.5 % (20.0-50.0); MEAN CORPUSCULAR HEMOGLOBIN 30.6 pg (28.0-32.0); MEAN CORPUSCULAR VOLUME 91.2 fL (81.0-99.0); MEAN PLATELET VOLUME 8.4 fl (7.4-10.4); MONOCYTES % 4.4 % (2.0-8.0); NEUTROPHILS % 60.2 % (40.0-76.0); PLATELET 183 x1000/uL (130-400); RED BLOOD CELL COUNT 2.68 mill/uL (4.2-5.4); RED CELL DISTRIBUTION WIDTH 20.8 % (11.6-14.6)
[2018-06-26 13:55] LABS: INR 1.2
[2018-06-26 13:57] LABS: CHLORIDE 89 mEq/L (98-107)
[2018-06-26] MEDS ORDERED: SODIUM CHLORIDE 0.9% 1,000 ML IV ONE ×2 (14:15→18:00)
[2018-06-26] MEDS ORDERED: PIPERACILLIN/TAZOBACTAM 3.375GM/50ML PREMIX IV ONE (14:15)
[2018-06-26 17:43] LABS: CLARITY URINE CLEAR (CLEAR); COLOR URINE DARK YELLOW (YELLOW); KETONES URINE NEGATIVE (NEGATIVE); LEUKOCYTE ESTERASE URINE 1+ (NEGATIVE); NITRITE URINE NEGATIVE (NEGATIVE); OCCULT BLOOD URINE NEGATIVE (NEGATIVE); PH URINE 5.5 (4.5-8.0); PROTEIN URINE NEGATIVE (NEGATIVE)
[2018-06-26] MEDS ORDERED: NA PHOS,M-B/NA PHOS,DI-BA ENEMA 118ML PR PRN (18:15)
[2018-06-26] MEDS ORDERED: MAGNESIUM/ALUMINUM HYDROXIDE/SIMETHICONE 30ML UDC PO PRN (18:15)
[2018-06-26] MEDS ORDERED: IPRATROPIUM/ALBUTEROL 0.5-3(2.5)MG/3ML NEB INH PRN (18:15)
[2018-06-26] MEDS ORDERED: LORAZEPAM 2MG/ML CPJ IV PRN (18:15)
[2018-06-26] MEDS ORDERED: DIPHENHYDRAMINE 50MG/ML VIAL IV PRN (18:15)
[2018-06-26] MEDS ORDERED: GUAIFENESIN 200MG/10ML SUGAR FREE UDC PO PRN (18:15)
[2018-06-26] MEDS ORDERED: CLONIDINE 0.1MG TABLET PO PRN (18:15)
[2018-06-26] MEDS ORDERED: DOCUSATE SODIUM 100MG CAPSULE PO PRN (18:15)
[2018-06-26] MEDS: MORPHINE SULFATE 4 MG/ML CPJ (NOT FOR IM USE) IV PRN (20:38)
[2018-06-26 21:30] VITALS: BP 112/64
[2018-06-26 22:11] VITALS: BP 112/64
[2018-06-26] MEDS ORDERED: S350 PO (22:38)
[2018-06-26] MEDS: ENOXAPARIN 40MG/0.4ML SYR SUBCUT SCH (22:53)
[2018-06-26] MEDS: SODIUM CHLORIDE 0.45% 1,000 ML IV SCH (22:53)
[2018-06-26] MEDS: HYDROCODONE/ACETAMINOPHEN 10/325MG TABLET PO PRN (22:54)
[2018-06-26] MEDS: PIPERACILLIN/TAZ 3.375G PREMIX 50 ML IV SCH (23:13)
[2018-06-27] VITALS: BP 104/58
[2018-06-27 01:19] LABS: CHLORIDE 91 mEq/L (98-107)
[2018-06-27 04:00] VITALS: BP 114/63
[2018-06-27] MEDS: MORPHINE SULFATE 4 MG/ML CPJ (NOT FOR IM USE) IV PRN ×4 (04:55→21:01)
[2018-06-27 05:26] LABS: HEMATOCRIT. 25.5 % (36.0-48.0); HEMOGLOBIN. 8.7 g/dL (12.0-16.0); MEAN CORPUSCULAR HEMOGLOBIN 30.5 pg (28.0-32.0); MEAN CORPUSCULAR VOLUME 89.8 fL (81.0-99.0); MEAN PLATELET VOLUME 8.5 fl (7.4-10.4); PLATELET 195 x1000/uL (130-400); RED BLOOD CELL COUNT 2.83 mill/uL (4.2-5.4); RED CELL DISTRIBUTION WIDTH 20.1 % (11.6-14.6)
[2018-06-27 05:32] LABS: CHLORIDE 91 mEq/L (98-107)
[2018-06-27 05:44] LABS: HDL CHOLESTEROL 10 mg/dL (40-59); T4 FREE 1.01 ng/dL (0.76-1.46)
[2018-06-27 05:47] LABS: LDL CHOLESTEROL 193 mg/dL (5-100)
[2018-06-27] MEDS: PIPERACILLIN/TAZ 3.375G PREMIX 50 ML IV SCH ×2 (06:23→16:34)
[2018-06-27 08:00] VITALS: BP 114/69
[2018-06-27 11:34] LABS: PLATELET ESTIMATE NORMAL
[2018-06-27 12:00] VITALS: BP 124/67
[2018-06-27] MEDS: SODIUM CHLORIDE 0.45% 1,000 ML IV SCH (14:07)
[2018-06-27 16:00] VITALS: BP 105/61
[2018-06-27 20:00] VITALS: BP 122/71
[2018-06-27] MEDS: ENOXAPARIN 40MG/0.4ML SYR SUBCUT SCH (20:04)
[2018-06-27] MEDS: HYDROCODONE/ACETAMINOPHEN 10/325MG TABLET PO PRN (20:04)
[2018-06-27] MEDS: SERTRALINE HCL 100MG TABLET PO SCH (22:42)
[2018-06-28] VITALS: BP 130/76
[2018-06-28] MEDS: PIPERACILLIN/TAZ 3.375G PREMIX 50 ML IV SCH ×3 (01:20→18:25)
[2018-06-28 04:00] VITALS: BP 125/67
[2018-06-28 08:00] VITALS: BP 119/68
[2018-06-28] MEDS: MORPHINE SULFATE 4 MG/ML CPJ (NOT FOR IM USE) IV PRN ×5 (08:17→20:52)
[2018-06-28 12:00] VITALS: BP 122/69
[2018-06-28 16:00] VITALS: BP 128/72
[2018-06-28 20:00] VITALS: BP 115/67
[2018-06-28] MEDS: ENOXAPARIN 40MG/0.4ML SYR SUBCUT SCH (21:06)
[2018-06-28] MEDS: SERTRALINE HCL 100MG TABLET PO SCH (21:06)
[2018-06-28] MEDS: SODIUM CHLORIDE 0.45% 1,000 ML IV SCH (21:59)
[2018-06-28] MEDS: HYDROCODONE/ACETAMINOPHEN 10/325MG TABLET PO PRN (22:04)
[2018-06-29] VITALS: BP 123/70
[2018-06-29] MEDS: PIPERACILLIN/TAZ 3.375G PREMIX 50 ML IV SCH ×4 (00:33→18:44)
[2018-06-29] MEDS: MORPHINE SULFATE 4 MG/ML CPJ (NOT FOR IM USE) IV PRN ×7 (01:24→23:25)
[2018-06-29 04:00] VITALS: BP 112/64
[2018-06-29 05:33] LABS: HEMATOCRIT. 23.1 % (36.0-48.0); HEMOGLOBIN. 8.3 g/dL (12.0-16.0); MEAN CORPUSCULAR HEMOGLOBIN 32.7 pg (28.0-32.0); MEAN CORPUSCULAR VOLUME 91.3 fL (81.0-99.0); MEAN PLATELET VOLUME 8.2 fl (7.4-10.4); PLATELET 251 x1000/uL (130-400); RED BLOOD CELL COUNT 2.53 mill/uL (4.2-5.4)
[2018-06-29 05:46] LABS: INR 1.1; PARTIAL THROMBOPLASTIN TIME 29.4 sec (23.4-31.0); PROTHROMBIN TIME 11.4 sec (9.1-11.1)
[2018-06-29 07:06] LABS: PLATELET ESTIMATE NORMAL
[2018-06-29 07:33] LABS: CHLORIDE 90 mEq/L (98-107)
[2018-06-29 08:00] VITALS: BP 113/58
[2018-06-29] MEDS: SODIUM CHLORIDE 0.45% 1,000 ML IV SCH (11:05)
[2018-06-29 12:00] VITALS: BP 104/62
[2018-06-29] MEDS ORDERED: LIDOCAINE HCL 1% 20ML VIAL (Pyxis) INJ ONE (13:39)
[2018-06-29] MEDS ORDERED: SODIUM BICARBONATE 4% (2.4MEQ) 5ML VIAL IV ONE (13:39)
[2018-06-29 16:00] VITALS: BP 124/67
[2018-06-29 20:00] VITALS: BP 126/68
[2018-06-29] MEDS: ENOXAPARIN 40MG/0.4ML SYR SUBCUT SCH (21:07)
[2018-06-29] MEDS: SERTRALINE HCL 100MG TABLET PO SCH (21:07)
[2018-06-29] MEDS: HYDROCODONE/ACETAMINOPHEN 10/325MG TABLET PO PRN (21:07)
[2018-06-30] VITALS: BP 124/59
[2018-06-30] MEDS: SODIUM CHLORIDE 0.45% 1,000 ML IV SCH (01:16)
[2018-06-30] MEDS: PIPERACILLIN/TAZ 3.375G PREMIX 50 ML IV SCH ×2 (01:17→07:03)
[2018-06-30] MEDS: MORPHINE SULFATE 4 MG/ML CPJ (NOT FOR IM USE) IV PRN ×2 (02:39→06:12)
[2018-06-30 04:00] VITALS: BP 121/66
[2018-06-30] MEDS: HYDROCODONE/ACETAMINOPHEN 10/325MG TABLET PO PRN ×2 (04:16→09:24)
[2018-06-30 08:00] VITALS: BP 115/68
[2018-06-30 11:03] LABS: HEMATOCRIT. 24.5 % (36.0-48.0); HEMOGLOBIN. 8.1 g/dL (12.0-16.0); MEAN CORPUSCULAR HEMOGLOBIN 29.4 pg (28.0-32.0); MEAN CORPUSCULAR VOLUME 88.7 fL (81.0-99.0); MEAN PLATELET VOLUME 8.3 fl (7.4-10.4); PLATELET 282 x1000/uL (130-400); RED BLOOD CELL COUNT 2.76 mill/uL (4.2-5.4); RED CELL DISTRIBUTION WIDTH 19.9 % (11.6-14.6)
[2018-06-30 11:11] LABS: CHLORIDE 89 mEq/L (98-107)
[2018-06-30 12:00] VITALS: BP 125/71
[2018-06-30 12:36] LABS: PLATELET ESTIMATE NORMAL
[2018-06-30 14:39] VITALS: BP 125/71
== END 2018-06-30 17:30 | disposition home or self-care (01) | DRG 243 ==
LOC: ER 13:34 → 5WST 15:21 → EDBEDREQ 15:22 → ENRESERV 15:25
PROVIDERS: ADMIT Internal Medicine; ATTEND Internal Medicine
PROC: 0W9G3ZZ Drainage of Peritoneal Cavity, Percutaneous Approach (ICD-10-PCS; principal; 2018-06-29)
DX: K21.9 Gastro-esophageal reflux disease without esophagitis (principal); J69.0 Pneumonitis due to inhalation of food and vomit; R18.8 Other ascites; E46 Unspecified protein-calorie malnutrition; C22.9 Malignant neoplasm of liver, not specified as primary or secondary; C25.9 Malignant neoplasm of pancreas, unspecified; R65.10 Systemic inflammatory response syndrome (SIRS) of non-infectious origin without acute organ dysfunction; E44.1 Mild protein-calorie malnutrition; G89.3 Neoplasm related pain (acute) (chronic); E86.0 Dehydration; S80.12XA Contusion of left lower leg, initial encounter; S80.11XA Contusion of right lower leg, initial encounter; R23.3 Spontaneous ecchymoses; I10 Essential (primary) hypertension; L29.9 Pruritus, unspecified; S51.812A Laceration without foreign body of left forearm, initial encounter; X58.XXXA Exposure to other specified factors, initial encounter; Y93.89 Activity, other specified; Y92.89 Other specified places as the place of occurrence of the external cause; Y99.8 Other external cause status; Z82.49 Family history of ischemic heart disease and other diseases of the circulatory system; Z90.49 Acquired absence of other specified parts of digestive tract; Z86.711 Personal history of pulmonary embolism; Z88.6 Allergy status to analgesic agent; Z88.7 Allergy status to serum and vaccine; Z88.8 Allergy status to other drugs, medicaments and biological substances; Z68.31 Body mass index [BMI] 31.0-31.9, adult; Z86.718 Personal history of other venous thrombosis and embolism
CPT/HCPCS: 36415; 49083; 71045; 74176; 80048; 80061; 83605; 84439; 84443; 84484; 93005; 96374; 96375; 99291; J1200; J1650; J2270; J2405; J2543; J3490; J7030

== ENCOUNTER 2018-07-09 19:55 | Inpatient (IN) | payer MEDICAID ==
[~2018-07-09] VITALS: Ht 170.2 cm; Wt 83.0 kg
[~2018-07-09 19:55] MED LIST changes: +S350 PO; -XAR15 MT
[2018-07-09] MEDS ORDERED: ONDANSETRON HCL 4MG/2ML INJ IV ONE (21:30)
[2018-07-09] MEDS ORDERED: FENTANYL CITRATE/PF 50MCG/ML 2ML VIAL IV ONE (21:30)
[2018-07-09 22:01] LABS: HEMATOCRIT. 30.6 % (36.0-48.0); HEMOGLOBIN. 9.8 g/dL (12.0-16.0); MEAN CORPUSCULAR HEMOGLOBIN 27.5 pg (28.0-32.0); MEAN CORPUSCULAR VOLUME 86.2 fL (81.0-99.0); PLATELET 160 x1000/uL (130-400); RED BLOOD CELL COUNT 3.55 mill/uL (4.2-5.4); RED CELL DISTRIBUTION WIDTH 19.4 % (11.6-14.6)
[2018-07-09 22:07] LABS: CHLORIDE 92 mEq/L (98-107)
[2018-07-09 22:18] LABS: PLATELET ESTIMATE NORMAL
[2018-07-09] MEDS ORDERED: LEVOFLOXACIN 750MG PREMIX 150 ML IV NR (22:21)
[2018-07-10] MEDS ORDERED: IPRATROPIUM/ALBUTEROL 0.5-3(2.5)MG/3ML NEB INH PRN (02:15)
[2018-07-10] MEDS ORDERED: MORPHINE SULFATE 2 MG/ML CPJ (NOT FOR IM USE) IV PRN ×2 (02:15→02:30)
[2018-07-10] MEDS: ONDANSETRON HCL 4MG/2ML INJ IV PRN ×2 (02:47→06:25)
[2018-07-10] MEDS ORDERED: MORPHINE SULFATE 10MG/5ML ORAL SOLN UDC PO PRN ×2 (05:00→21:00)
[2018-07-10 05:04] VITALS: BP 123/81
[2018-07-10] MEDS ORDERED: SODIUM CHLORIDE 0.9% 1,000 ML IV SCH (06:00)
[2018-07-10 08:22] VITALS: BP 104/61
[2018-07-10] MEDS: FAMOTIDINE 20MG/2ML VIAL IV SCH ×2 (08:47→20:55)
[2018-07-10 12:00] VITALS: BP 105/69
[2018-07-10 16:00] VITALS: BP 111/66
[2018-07-10] MEDS: MORPHINE SULFATE 10MG/5ML ORAL SOLN UDC PO PRN (17:43)
[2018-07-10 20:00] VITALS: BP 109/73
[2018-07-11] VITALS: BP 116/72
[2018-07-11 04:00] VITALS: BP 114/65
[2018-07-11] MEDS: MORPHINE SULFATE 10MG/5ML ORAL SOLN UDC PO PRN (04:46)
[2018-07-11 08:00] VITALS: BP 111/66
[2018-07-11] MEDS: FAMOTIDINE 20MG/2ML VIAL IV SCH ×2 (08:40→21:35)
[2018-07-11 09:56] LABS: INR 1.2; PROTHROMBIN TIME 12.3 sec (9.1-11.1)
[2018-07-11] MEDS: OXYCODONE HCL/ACETAMINOPHEN 5/325MG TABLET PO PRN ×3 (10:04→21:35)
[2018-07-11] MEDS ORDERED: LIDOCAINE HCL 1% 20ML VIAL (Pyxis) INJ ONE (10:30)
[2018-07-11] MEDS ORDERED: SODIUM BICARBONATE 4% (2.4MEQ) 5ML VIAL IV ONE (10:30)
[2018-07-11 12:00] VITALS: BP 105/87
[2018-07-11] MEDS: ONDANSETRON HCL 4MG/2ML INJ IV PRN (13:26)
[2018-07-11 16:00] VITALS: BP 108/71
[2018-07-11 20:00] VITALS: BP 101/62
[2018-07-12] VITALS: BP 106/57
[2018-07-12 04:00] VITALS: BP 109/60
[2018-07-12] MEDS: OXYCODONE HCL/ACETAMINOPHEN 5/325MG TABLET PO PRN ×2 (05:17→11:54)
[2018-07-12] MEDS: ONDANSETRON HCL 4MG/2ML INJ IV PRN ×2 (06:39→16:42)
[2018-07-12] MEDS: FAMOTIDINE 20MG/2ML VIAL IV SCH (08:28)
[2018-07-12 12:06] VITALS: BP 111/68
[2018-07-12 13:34] VITALS: BP 111/68
[2018-07-12 16:00] VITALS: BP 112/63
== END 2018-07-12 17:45 | disposition home health service (06) | DRG 281 ==
LOC: ER 19:55 → 8WST 22:26 → ENRESERV 07-10 02:55
PROVIDERS: ADMIT Internal Medicine; ATTEND Internal Medicine
PROC: 0W9G30Z Drainage of Peritoneal Cavity with Drainage Device, Percutaneous Approach (ICD-10-PCS; principal; 2018-07-11)
DX: C78.7 Secondary malignant neoplasm of liver and intrahepatic bile duct (principal); E43 Unspecified severe protein-calorie malnutrition; L89.159 Pressure ulcer of sacral region, unspecified stage; C78.00 Secondary malignant neoplasm of unspecified lung; R18.8 Other ascites; C25.9 Malignant neoplasm of pancreas, unspecified; K72.90 Hepatic failure, unspecified without coma; E87.1 Hypo-osmolality and hyponatremia; D64.9 Anemia, unspecified; G89.4 Chronic pain syndrome; I10 Essential (primary) hypertension; T14.8XXA Other injury of unspecified body region, initial encounter; X58.XXXA Exposure to other specified factors, initial encounter; R59.9 Enlarged lymph nodes, unspecified; Z90.710 Acquired absence of both cervix and uterus; Z90.49 Acquired absence of other specified parts of digestive tract; Z88.6 Allergy status to analgesic agent; Z88.5 Allergy status to narcotic agent; Z88.8 Allergy status to other drugs, medicaments and biological substances; Z79.1 Long term (current) use of non-steroidal anti-inflammatories (NSAID); Z79.899 Other long term (current) drug therapy; Z98.891 History of uterine scar from previous surgery; Z92.21 Personal history of antineoplastic chemotherapy; Z82.49 Family history of ischemic heart disease and other diseases of the circulatory system; Y93.89 Activity, other specified; Y92.89 Other specified places as the place of occurrence of the external cause; Y99.8 Other external cause status; Z68.28 Body mass index [BMI] 28.0-28.9, adult
CPT/HCPCS: 36415; 49083; 71045; 82248; 83880; 84484; 93005; 93970; 96365; 96366; 96375; 99285; A6261; J1956; J2270; J2405; J3010; J3490

== ENCOUNTER 2018-07-14 22:55 | Inpatient (IN) | payer MEDICAID ==
[~2018-07-14] VITALS: Ht 170.2 cm; Wt 82.1 kg
[2018-07-14] MEDS ORDERED: ONDANSETRON HCL 4MG/2ML INJ IV STA (23:22)
[2018-07-14] MEDS ORDERED: MORPHINE SULFATE 4 MG/ML CPJ (NOT FOR IM USE) IV STA (23:22)
[2018-07-14] MEDS ORDERED: MORPHINE SULFATE 2 MG/ML CPJ (NOT FOR IM USE) IV STA (23:51)
[2018-07-15] MEDS ORDERED: SODIUM CHLORIDE 0.9% 500 ML IV ONE (00:05)
[2018-07-15 01:23] LABS: HEMATOCRIT. 32.6 % (36.0-48.0); HEMOGLOBIN. 10.5 g/dL (12.0-16.0); MEAN CORPUSCULAR HEMOGLOBIN 27.1 pg (28.0-32.0); MEAN CORPUSCULAR VOLUME 84.4 fL (81.0-99.0); MEAN PLATELET VOLUME 7.9 fl (7.4-10.4); PLATELET 248 x1000/uL (130-400); RED BLOOD CELL COUNT 3.87 mill/uL (4.2-5.4); RED CELL DISTRIBUTION WIDTH 19.3 % (11.6-14.6)
[2018-07-15 01:28] LABS: CHLORIDE 92 mEq/L (98-107)
[2018-07-15 01:31] LABS: ETHANOL BLOOD < 10 mg/dL
[2018-07-15 01:46] LABS: PLATELET ESTIMATE NORMAL
[2018-07-15 01:48] LABS: INR 1.2
[2018-07-15] MEDS ORDERED: PIPERACILLIN/TAZ 3.375G PREMIX 50 ML IV ONE (02:15)
[2018-07-15] MEDS ORDERED: METRONIDAZOLE 500 MG PREMIX 100 ML IV ONE (02:15)
[2018-07-15] MEDS ORDERED: DIPHENHYDRAMINE 50MG/ML VIAL IV PRN (04:30)
[2018-07-15] MEDS ORDERED: IPRATROPIUM/ALBUTEROL 0.5-3(2.5)MG/3ML NEB INH PRN (04:30)
[2018-07-15] MEDS ORDERED: LORAZEPAM 0.5MG TABLET PO PRN (04:30)
[2018-07-15] MEDS ORDERED: ONDANSETRON HCL 4MG/2ML INJ IV PRN (04:30)
[2018-07-15] MEDS ORDERED: ACETAMINOPHEN 325MG TABLET PO PRN (04:30)
[2018-07-15 05:07] LABS: CLARITY URINE CLEAR (CLEAR); COLOR URINE DARK YELLOW (YELLOW); KETONES URINE NEGATIVE (NEGATIVE); LEUKOCYTE ESTERASE URINE NEGATIVE (NEGATIVE); NITRITE URINE NEGATIVE (NEGATIVE); OCCULT BLOOD URINE NEGATIVE (NEGATIVE); PROTEIN URINE NEGATIVE (NEGATIVE); SPECIFIC GRAVITY URINE 1.025 (1.005-1.030)
[2018-07-15 05:08] LABS: *AMPHETAMINES SCREEN URINE NEGATIVE (NEGATIVE); *BARBITURATES SCREEN URINE NEGATIVE (NEGATIVE)
[2018-07-15 05:09] LABS: *BENZODIAZEPINES SCREEN URINE NEGATIVE (NEGATIVE); *COCAINE SCREEN URINE NEGATIVE (NEGATIVE); CANNABINOID URINE SCREEN PRESUMTIVE POSITIVE (NEGATIVE); METHADONE URINE SCREEN NEGATIVE (NEGATIVE); OPIATES URINE SCREEN PRESUMTIVE POSITIVE (NEGATIVE); PHENCYCLIDINE URINE SCREEN NEGATIVE (NEGATIVE)
[2018-07-15] MEDS: OXYCODONE HCL/ACETAMINOPHEN 5/325MG TABLET PO PRN ×2 (05:19→15:58)
[2018-07-15 09:34] VITALS: BP 124/64
[2018-07-15 09:43] VITALS: BP 124/64
[2018-07-15] MEDS ORDERED: LIDOCAINE HCL 1% 20ML VIAL (Pyxis) INJ ONE (11:02)
[2018-07-15] MEDS ORDERED: SODIUM BICARBONATE 4% (2.4MEQ) 5ML VIAL IV ONE (11:02)
[2018-07-15 12:30] VITALS: BP 124/68
[2018-07-15] MEDS: SODIUM CHLORIDE 0.9% INJ 3ML FLUSH IVF SCH ×3 (13:05→22:45)
[2018-07-15 15:55] VITALS: BP 132/78
[2018-07-15] MEDS ORDERED: MORPHINE SULFATE 4 MG/ML CPJ (NOT FOR IM USE) IV PRN (16:45)
[2018-07-15] MEDS: MORPHINE SULFATE 10MG/5ML ORAL SOLN UDC PO PRN (17:02)
[2018-07-15 20:00] VITALS: BP 123/76
[2018-07-16] VITALS: BP 120/77
[2018-07-16 04:00] VITALS: BP 127/75
[2018-07-16] MEDS: MORPHINE SULFATE 10MG/5ML ORAL SOLN UDC PO PRN (05:14)
[2018-07-16] MEDS: SODIUM CHLORIDE 0.9% INJ 3ML FLUSH IVF SCH ×2 (06:00→14:48)
[2018-07-16 06:59] LABS: HEMATOCRIT. 30.5 % (36.0-48.0); HEMOGLOBIN. 9.7 g/dL (12.0-16.0); MEAN CORPUSCULAR HEMOGLOBIN 26.9 pg (28.0-32.0); MEAN CORPUSCULAR VOLUME 84.2 fL (81.0-99.0); MEAN PLATELET VOLUME 7.9 fl (7.4-10.4); PLATELET 267 x1000/uL (130-400); RED BLOOD CELL COUNT 3.62 mill/uL (4.2-5.4); RED CELL DISTRIBUTION WIDTH 18.8 % (11.6-14.6)
[2018-07-16 07:04] LABS: CHLORIDE 93 mEq/L (98-107)
[2018-07-16 08:38] VITALS: BP 131/73
[2018-07-16 12:21] VITALS: BP 123/64
[2018-07-16] MEDS ORDERED: SODIUM POLYSTYRENE SULFONATE 15 G/60 ML BOT PO NR (14:00)
[2018-07-16 14:07] LABS: PLATELET ESTIMATE NORMAL
[2018-07-16 15:39] VITALS: BP 123/64
[2018-07-16 16:28] VITALS: BP 121/68
== END 2018-07-16 16:51 | disposition hospice, home (50) | DRG 281 ==
LOC: ER 22:55 → 6WST 07-15 01:22 → EDBEDREQ 07-15 01:29 → ENRESERV 07-15 07:12
PROVIDERS: ADMIT Internal Medicine; ATTEND Internal Medicine
PROC: 0W9G3ZZ Drainage of Peritoneal Cavity, Percutaneous Approach (ICD-10-PCS; principal; 2018-07-15)
DX: C25.9 Malignant neoplasm of pancreas, unspecified (principal); E43 Unspecified severe protein-calorie malnutrition; L89.150 Pressure ulcer of sacral region, unstageable; L89.220 Pressure ulcer of left hip, unstageable; R18.0 Malignant ascites; I48.91 Unspecified atrial fibrillation; E87.5 Hyperkalemia; D64.9 Anemia, unspecified; L89.620 Pressure ulcer of left heel, unstageable; Z74.01 Bed confinement status; L89.610 Pressure ulcer of right heel, unstageable; R74.0 Nonspecific elevation of levels of transaminase and lactic acid dehydrogenase [LDH]; D72.829 Elevated white blood cell count, unspecified; I10 Essential (primary) hypertension; F10.21 Alcohol dependence, in remission; L89.890 Pressure ulcer of other site, unstageable; S11.91XA Laceration without foreign body of unspecified part of neck, initial encounter; X58.XXXA Exposure to other specified factors, initial encounter; F12.90 Cannabis use, unspecified, uncomplicated; L57.0 Actinic keratosis; Z51.5 Encounter for palliative care; G89.4 Chronic pain syndrome; Z82.49 Family history of ischemic heart disease and other diseases of the circulatory system; Z86.718 Personal history of other venous thrombosis and embolism; Z86.73 Personal history of transient ischemic attack (TIA), and cerebral infarction without residual deficits; Z87.891 Personal history of nicotine dependence; Z90.710 Acquired absence of both cervix and uterus; Z68.28 Body mass index [BMI] 28.0-28.9, adult; Z88.6 Allergy status to analgesic agent; Z88.7 Allergy status to serum and vaccine; Z88.8 Allergy status to other drugs, medicaments and biological substances; Z90.49 Acquired absence of other specified parts of digestive tract; Y93.89 Activity, other specified; Y92.89 Other specified places as the place of occurrence of the external cause; Y99.8 Other external cause status
CPT/HCPCS: 36415; 49083; 71045; 80048; 80305; 83605; 83880; 84134; 84484; 93005; 99285; G0482; J2270; J2405; J2543; J3490; J7040; A4315